=== PATIENT | male | born 1990 | race American Indian/Alaskan Native ===

== ENCOUNTER 2017-06-06 06:44 | Emergency (ER) | payer OTHER ==
[2017-06-06] MEDS ORDERED: ZOFRAN ODT PO ONE (07:47)
[2017-06-06 07:55] LABS: Hematocrit 41.5 % (35.5-45.6); Mean Corpuscular HGB Conc 34 % (32-34); Mean Corpuscular Hemoglobin 31 pg (28-32); Mean Corpuscular Volume 93 fl (84-94); Platelet Count 282 K/mm3 (140-440); Red Blood Count 4.48 M/mm3 (3.65-5.03); Red Cell Distribution Width 15.4 % (13.2-15.2)
[2017-06-06 07:58] LABS: Bilirubin,Urine NEG (Negative); Blood,Urine NEG (Negative); Color,Urine Yellow (Yellow); Protein,Urine <15 mg/dL mg/dL (Negative)
[2017-06-06 08:03] LABS: Alanine Aminotransferase 13 units/L (7-56); Albumin 4.4 g/dL (3.9-5); BUN/Creatinine Ratio 13; Blood Urea Nitrogen 9 mg/dL (9-20); Calcium 9.6 mg/dL (8.4-10.2); Hemolysis Index 8; Lipase 56 units/L (13-60)
[2017-06-06] MEDS ORDERED: K-DUR PO ONE (08:04)
[2017-06-06] MEDS ORDERED: NACL 0.9% 1000 ML 1,000 ML IV ONE (08:44)
--- NOTE | 2017-06-06 08:45 | Emergency Department Report ---
ED Abdominal Pain HPI - General Chief Complaint: Nausea/Vomiting/Diarrhea Stated Complaint: N/V/D; FATIGUE Time Seen by Provider: 06/06/17 07:29 Source: patient Mode of arrival: Ambulatory Limitations: No Limitations - History of Present Illness Initial Comments: This is a 27-year-old male nontoxic, well nourished in appearance, no acute signs of distress presents to the ED with c/o of nausea, vomiting, and diffuse abdominal pain 4 days. Patient describes abdominal pain as aching/cramping with level of 8 out of 10. Patient denies any diarrhea or constipation. Patient's last bowel movement was this morning with normal. Patient denies any chest pain, shortness of breath, fever, chills, nausea, vomiting, headache or stiff neck. Patient denies any recent travels, long car rides, or recent hospital stays. Patient stated past medical history includes HIV positive with "undetectable". Patient he is does not remember the CD4 count. Patient does follow up with a primary care doctor for HIV. Patient denies any allergies or any other past medical history. MD Complaint: abdominal pain -: days(s) (4) Location: diffuse Radiation: none Migration to: no migration Severity: mild Severity scale (0 -10): 8 Quality: cramping, aching Consistency: constant Improves With: nothing Worsens With: nothing Associated Symptoms: nausea, vomiting. denies: diarrhea, fever, chills, constipation, dysuria, hematemesis, hematochezia, melena, hematuria, anorexia, syncope - Related Data Previous Rx's Medication Instructions Recorded Last Taken Type Ciprofloxacin HCl [Ciprofloxacin 500 mg PO Q12HR #14 tab 06/06/17 Unknown Rx TAB] Ondansetron [Zofran Odt] 4 mg PO Q8H PRN #20 tab.rapdis 06/06/17 Unknown Rx Allergies Allergy/AdvReac Type Severity Reaction Status Date / Time No Known Allergies Allergy Verified 06/06/17 08:05 ED Review of Systems ROS: Stated complaint: N/V/D; FATIGUE Other details as noted in HPI Constitutional: denies: chills, fever Eyes: denies: eye pain, eye discharge, vision change ENT: denies: ear pain, throat pain Respiratory: denies: cough, shortness of breath, wheezing Cardiovascular: denies: chest pain, palpitations Endocrine: no symptoms reported Gastrointestinal: abdominal pain, nausea, vomiting. denies: diarrhea Genitourinary: denies: urgency, dysuria Musculoskeletal: denies: back pain, joint swelling, arthralgia Skin: denies: rash, lesions Neurological: denies: headache, weakness, paresthesias Psychiatric: denies: anxiety, depression Hematological/Lymphatic: denies: easy bleeding, easy bruising ED Past Medical Hx - Past Medical History Previous Medical History?: Yes Hx HIV: Yes - Surgical History Past Surgical History?: No - Social History Smoking Status: Current Every Day Smoker Substance Use Type: Marijuana, Prescribed - Medications Home Medications: Home Medications Medication Instructions Recorded Confirmed Last Taken Type Ciprofloxacin HCl [Ciprofloxacin 500 mg PO Q12HR #14 tab 06/06/17 Unknown Rx TAB] Ondansetron [Zofran Odt] 4 mg PO Q8H PRN #20 tab.rapdis 06/06/17 Unknown Rx ED Physical Exam - General Limitations: No Limitations General appearance: alert, in no apparent distress - Head Head exam: Present: atraumatic, normocephalic - Eye Eye exam: Present: normal appearance, PERRL, EOMI Pupils: Present: normal accommodation - ENT ENT exam: Present: normal exam, normal orophraynx, mucous membranes moist, TM's normal bilaterally, normal external ear exam - Neck Neck exam: Present: normal inspection, full ROM. Absent: tenderness, meningismus, lymphadenopathy, thyromegaly - Respiratory Respiratory exam: Present: normal lung sounds bilaterally. Absent: respiratory distress, wheezes, rales, rhonchi, stridor, chest wall tenderness, accessory muscle use, decreased breath sounds, prolonged expiratory - Cardiovascular Cardiovascular Exam: Present: regular rate, normal rhythm, normal heart sounds. Absent: irregular rhythm, systolic murmur, diastolic murmur, rubs, gallop - GI/Abdominal GI/Abdominal exam: Present: soft, tenderness (diffuse), normal bowel sounds. Absent: distended, guarding, rebound, rigid, diminished bowel sounds - Expanded GI/Abdominal Exam Expanded GI/Abdominal exam: Absent: psoas sign, obturator sign, heel tap sign, Perez's sign, Rovsing's sign, tenderness at Mcburney's Point, ascites - Rectal Rectal exam: Present: deferred - Extremities Exam Extremities exam: Present: normal inspection, full ROM, normal capillary refill. Absent: tenderness, pedal edema, joint swelling, calf tenderness - Back Exam Back exam: Present: normal inspection, full ROM. Absent: tenderness, CVA tenderness (R), CVA tenderness (L), muscle spasm, paraspinal tenderness, vertebral tenderness, rash noted - Neurological Exam Neurological exam: Present: alert, oriented X3, CN II-XII intact, normal gait, reflexes normal - Psychiatric Psychiatric exam: Present: normal affect, normal mood - Skin Skin exam: Present: warm, dry, intact, normal color. Absent: rash ED Course Vital Signs 06/06/17 07:23 Temperature 98.8 F Pulse Rate 58 L Respiratory 20 Rate Blood Pressure 157/108 O2 Sat by Pulse 100 Oximetry - Reevaluation(s) Reevaluation #1: 06/06/17 08:58 Patient is speaking in full sentences with no signs of distress noted. ED Medical Decision Making - Lab Data Result diagrams: 06/06/17 07:31 06/06/17 07:31 - Medical Decision Making This is a 19-year-old male that presents with nausea, vomiting, and abdominal pain. UA indicates UTI. Patient stable and was examined by me. Labs within normal limits. CT of abdomen size pelvis with contrast and IV obtained and dictated by radiologist within normal limits and hiatal hernia. Patient received Zofran and a oral challenge has been obtained and patient tolerated well with no nausea or vomiting. Patient received 1 L of normal saline. Patient was also instructed to Follow-up with a primary care doctor in 3-5 days or if symptoms worsen and continue return to emergency room as soon as possible. At time of discharge, the patient does not seem toxic or ill in appearance. No acute signs of distress noted. Patient agrees to discharge treatment plan of care. No further questions noted by the patient. Critical care attestation.: If time is entered above; I have spent that time in minutes in the direct care of this critically ill patient, excluding procedure time. ED Disposition Clinical Impression: UTI (urinary tract infection) Qualifiers: Urinary tract infection type: site unspecified Hematuria presence: without hematuria Qualified Code(s): N39.0 - Urinary tract infection, site not specified Nausea & vomiting Qualifiers: Vomiting type: unspecified Vomiting Intractability: non-intractable Qualified Code(s): R11.2 - Nausea with vomiting, unspecified Abdominal pain Qualifiers: Abdominal location: unspecified location Qualified Code(s): R10.9 - Unspecified abdominal pain Disposition: DC- TO HOME OR SELFCARE Is pt being admited?: No Does the pt Need Aspirin: No Condition: Stable Instructions: Ciprofloxacin (By mouth), Urinary Tract Infection in Men (ED), Acute Nausea and Vomiting (ED), Acute Abdominal Pain (ED) Additional Instructions: Follow-up with a primary care doctor in 3-5 days or if symptoms worsen and continue return to emergency room as soon as possible. Increase hydration as much as possible. Prescriptions: Ciprofloxacin HCl [Ciprofloxacin TAB] 500 mg PO Q12HR #14 tab Ondansetron [Zofran Odt] 4 mg PO Q8H PRN #20 tab.rapdis PRN Reason: Nausea Referrals: PRIMARY CAREMD [Primary Care Provider] - 3-5 Days GRAEME JOLLY MD [Staff Physician] - 3-5 Days [facility] [Outside] - 3-5 Days [facility] [Outside] - 3-5 Days Forms: Work/School Release Form(ED)
[2017-06-06] MEDS ORDERED: ZOFRAN IV ONE (08:50)
[2017-06-06 08:57] LABS: Basophils % (Manual) 0 % (0.0-1.8); Eosinophils % (Manual) 0 % (0.0-4.3); Total Cells Counted 100
[2017-06-06] MEDS ORDERED: TORADOL IV ONE (08:57)
[2017-06-06 08:58] LABS: Anisocytosis Few
--- NOTE | 2017-06-06 12:10 | Cat Scan Report ---
CT ABDOMEN PELVIS WITH CONTRAST: HISTORY: abdominal pain. COMPARISON: none. TECHNIQUE: Helical CT in 1.25mm intervals following IV contrast. Sagittal and coronal reconstructions. FINDINGS: Lung bases: Normal. Liver: Normal. Biliary system: Normal. Pancreas: Normal. Spleen: Normal. Kidneys/ureters/bladder: Normal. Adrenal glands: Normal. Aorta: Normal. Intestines: Within normal limits given no oral contrast was administered. Small hiatal hernia. Appendix: Normal. Ascites: None. Adenopathy: None. Musculoskeletal: Normal. IMPRESSION: Small hiatal hernia. Otherwise, unremarkable CT of the abdomen and pelvis.
[2017-06-06 13:31] VITALS: BP 164/101
== END 2017-06-06 13:30 | disposition home or self-care (01) ==
LOC: ED 06:44
DX: N39.0 Urinary tract infection, site not specified (principal); R11.2 Nausea with vomiting, unspecified; F17.200 Nicotine dependence, unspecified, uncomplicated; F12.10 Cannabis abuse, uncomplicated; Z21 Asymptomatic human immunodeficiency virus [HIV] infection status
CPT/HCPCS: 36415; 74177; 80053; 81001; 83690; 85007; 85025; 96361; 96374; 96375; 99284; J1885; J2405; J7030; Q9967; Q0162

== ENCOUNTER 2018-11-07 13:31 | Emergency (ER) | payer SELFPAY | END 2018-11-07 14:17 | LOC: ED 13:31 | DX: M79.662 Pain in left lower leg (principal); M79.661 Pain in right lower leg; Z53.21 Procedure and treatment not carried out due to patient leaving prior to being seen by health care provider ==